=== PATIENT | male | born 1995 | race African-American/Black ===

== ENCOUNTER 2023-01-15 14:45 | Emergency (ER) | payer OTHER, SELFPAY ==
[2023-01-15 15:06] VITALS: BP 122/66; PULSE 71; RESP 16; TEMP 37; O2SAT 99
--- NOTE | 2023-01-15 16:08 | ED.NAVMDI ---
HPI - Nausea/Vomiting/Diarrhea General Chief complaint: Nausea/Vomiting/Diarrhea Stated complaint: vomiting,diarrhea Time Seen by Provider: 01/15/23 16:04 Source: patient and RN notes reviewed Mode of arrival: ambulatory Limitations: no limitations History of Present Illness HPI Narrative: Patient presents today complaining of 4 day history of vomiting and diarrhea. States he needs a note to return to work. He stopped vomiting yesterday. He had 1 episode of diarrhea this morning. No blood or mucus in his stool. He has been able to keep down [employer] food today without difficulty. Denies fever or abdominal pain. He has tried no medication for symptoms prior to arrival. Related Data Allergies Allergy/AdvReac Type Severity Reaction Status Date / Time diphenhydramine Allergy Unknown Unknown Verified 01/15/23 15:49 [From Benadryl] Penicillins Allergy Unknown Unknown Verified 01/15/23 15:49 Review of Systems Review of Systems: CONSTITUTIONAL: Denies body aches, fever, chills, or sweats. EYES: Denies visual changes, redness, or discharge. ENT: Denies rhinorrhea, congestion, sore throat, or otalgia. CARDIOVASCULAR: Denies chest pain, palpitations, or edema. RESPIRATORY: Denies cough or dyspnea. GASTROINTESTINAL: Denies abdominal pain. + nausea, vomiting, diarrhea GENITOURINARY: Denies dysuria or hematuria. SKIN: Denies rash, itching, or wounds. MUSCULOSKELETAL: Denies back pain, joint pain, or myalgia. NEUROLOGIC: Denies headache, numbness, tingling, or weakness. PSYCH: Denies depression or anxiety. PMFSH Comments At time of signature, I have reviewed and agree with nursing past medical, surgical, social and family history unless otherwise noted. Please see nursing chart for further information. There is no relevant family history pertinent to the presenting complaint Exam Narrative: GENERAL: Well-appearing, well-nourished, and in no acute distress. HEAD: Normocephalic, atraumatic. EYES: EOMI. No redness or drainage. Conjunctivae normal. ENT: Mucous membranes pink and moist. Nares clear. No rhinorrhea. Throat normal. Uvula midline. NECK: Normal AROM. CHEST: No respiratory distress. Clear to auscultation. HEART: Regular rate and rhythm. No murmur appreciated. ABDOMEN: Soft, nontender, nondistended, normal active bowel sounds. EXTREMITIES: Normal range of motion. No edema. SKIN: Warm, dry, no rash. Capillary refill normal. Normal skin turgor. NEURO: No focal deficits. Alert and oriented x3. Gait steady. PSYCH: Normal affect. No signs of depression or anxiety. Course Course Level of Care: Express Care Visit Vital Signs Vital signs: Vital Signs Temperature 98.6 F 01/15/23 15:06 Pulse Rate 71 01/15/23 15:06 Respiratory Rate 16 01/15/23 15:06 Blood Pressure 122/66 01/15/23 15:06 Pulse Oximetry 99 01/15/23 15:06 Oxygen Delivery Room Air 01/15/23 15:06 Temperature 98.6 F 01/15/23 15:06 Pulse Rate 71 01/15/23 15:06 Respiratory Rate 16 01/15/23 15:06 Blood Pressure 122/66 01/15/23 15:06 Pulse Oximetry 99 01/15/23 15:06 Oxygen Delivery Room Air 01/15/23 15:06 Reviewed MDM - Nausea/Vomiting/Diarrhea MDM Narrative Medical decision making narrative: Patient's symptoms have almost fully resolved. He is able to keep down fluids and food without difficulty. Will provide him with a return to work note. No testing or prescription medications indicated at this time. Anticipatory guidance given. Differential Diagnosis Differential diagnosis: Likely food poisoning, gastroenteritis, dehydration and other (Viral syndrome) Critical Care Time Critical Care Time Critical Care Time: No Discharge Plan Discharge Clinical Impression: Nausea vomiting and diarrhea Patient Disposition: Home, Self-Care Condition: Stable Instructions: Acute Nausea and Vomiting (DC), Acute Diarrhea (ED) Additional Instructions: Continue to stay hydrated. Follow-up with darryl
== END 2023-01-15 16:14 | disposition home or self-care (01) ==
PROVIDERS: Emergency Provider Nurse Practitioner
DX: R11.2 Nausea with vomiting, unspecified (principal); R19.7 Diarrhea, unspecified
CPT/HCPCS: 99202; G0463

== ENCOUNTER 2023-03-06 11:04 | Emergency (ER) | payer OTHER, SELFPAY ==
[2023-03-06 11:10] VITALS: BP 116/70; PULSE 106; RESP 22; TEMP 38.9; O2SAT 100
--- NOTE | 2023-03-06 11:13 | ED.NAVMDI ---
HPI - Nausea/Vomiting/Diarrhea General Chief complaint: Nausea/Vomiting/Diarrhea Stated complaint: Vomiting Blood/Fatigue/Dizziness Time Seen by Provider: 03/06/23 11:07 Source: patient Mode of arrival: ambulatory Limitations: no limitations History of Present Illness HPI Narrative: Patient is a 27-year-old male who presents with nausea, vomiting and diarrhea since yesterday evening. Worsening around 2:00 a.m. today. Per patient and patient is vomiting blood. Patient reports constant dizziness and fatigue. Patient is unable to ambulate by himself due to weakness. Denies any blood in diarrhea. Patient states he has had a fever and did take Tylenol or ibuprofen this morning before 5:00 a.m.. Does state he still has his appendix and gallbladder. Reports abdominal pain is upper epigastric and rates it an 8/10. Described as sharp. Related Data Home Medications Medication Instructions Recorded Confirmed No Home Medications 03/06/23 03/06/23 Allergies Allergy/AdvReac Type Severity Reaction Status Date / Time diphenhydramine Allergy Unknown Unknown Verified 03/06/23 11:17 [From Benadryl] Penicillins Allergy Unknown Unknown Verified 03/06/23 11:17 Review of Systems Review of Systems: All systems reviewed & are unremarkable except as noted in HPI and below Constitutional: Constitutional: Denies body ache(s), Denies chills, Reports fatigue, Reports fever(s), Denies headache(s), Denies malaise and Denies weakness Eyes: Eyes: Denies blurry vision, Denies irritation and Denies loss of vision ENT: Denies otalgia, Denies headache(s), Denies nasal discharge, Denies sinus pain and Denies sore throat Cardiovascular: Cardiovascular: Denies chest pain, Denies irregular heart rhythm and Denies dyspnea Respiratory: Respiratory: Denies dyspnea Gastrointestinal: Gastrointestinal: Reports abdominal pain, Denies melena, Denies hematochezia, Reports diarrhea, Reports nausea and Reports vomiting Musculoskeletal: Musculoskeletal: Denies back pain, Denies myalgias and Denies arthralgias Integumentary/Breasts: Skin/Breast: Denies pruritus and Denies rash Neurologic: Reports dizziness, Denies headache(s), Denies loss of vision and Denies weakness Psychiatric: Psychiatric: Reports no additional psychiatric complaints Endocrine: Endocrine: Denies fatigue PMFSH Comments At time of signature, agree with nursing past medical, surgical, social and family history. There is no relevant family history pertinent to the presenting complaint. Exam Const: General: cooperative, healthy appearing, comfortable, no acute distress and well nourished Nutritional Appearance: well nourished Orientation/consciousness: patient oriented x3 Limitations: no limitations HENMT: Head: normal to inspection, normocephalic and atraumatic Ears: hearing grossly normal bilaterally and external ears normal Face/Nose/Sinus: Normal external nose present, normal facial exam and face symmetric Face and sinus: normal facial exam and face symmetric Mouth: Yes lip normal Eyes: General: appearance normal, both eyes and all related structures Alignment and Position: alignment normal and position normal Periorbital: periorbital findings normal Eyelids: eyelids normal Pupils: Equal, round and reactive pupils present EOM: EOMs intact bilaterally Neck: Neck: normal visual inspection, full ROM and supple Chest: Chest palpation & inspection: normal inspection of the chest Resp: Effort & Inspection: normal respiratory effort and able to speak in complete sentences Auscultation: clear to auscultation bilaterally Cardio: Rate: regular rate Rhythm: regular rhythm Heart sounds: S1 normal heart sound present and S2 normal heart sound present GI: GI Palp: Yes abdominal tenderness and Yes Soft to palpation Skin: General skin exam: normal color and no rashes or lesions noted Neuro: General: patient oriented x3 and moves all extremities Cranial nerves: Yes Equal,
== END 2023-03-06 11:25 | disposition short-term general hospital (02) ==
PROVIDERS: Emergency Provider Nurse Practitioner Family
DX: K92.0 Hematemesis (principal)
CPT/HCPCS: 99215; G0463

== ENCOUNTER 2023-03-06 11:51 | Emergency (ER) | payer OTHER, SELFPAY ==
[2023-03-06] VITALS (7 sets, daily range): BP systolic 107–131; BP diastolic 63–77; PULSE 95; RESP 20; TEMP 38.6; O2SAT 98–100
--- NOTE | 2023-03-06 14:39 | ED.ABDPAIN ---
HPI - Abdominal Pain General Chief Complaint: Abdominal Pain Stated Complaint: fever/weakness/vomiting blood Time Seen by Provider: 03/06/23 14:38 History of Present Illness HPI narrative: Patient is a 27-year-old male with no past medical history here today with nausea, vomiting, weakness. Patient states that yesterday he began having some upper respiratory symptoms including a runny nose, sore throat and cough. Today it progressed to involve some abdominal pain which she notes is periumbilical, nonradiating, severe. This is been associated with nausea and multiple episodes of vomiting. He notes that he has been unable to keep any fluids down today. He does note some streaks of blood in the vomit after multiple episodes. Denies any chest pain. He had a fever at home, went into Urgent Care where he also had a fever and was referred here into the emergency department for further evaluation. He has taken nothing for his fever since 6:00 a.m. this morning. No known sick contacts. History assisted by kiki at bedside. Related Data Allergies Allergy/AdvReac Type Severity Reaction Status Date / Time diphenhydramine Allergy Unknown Unknown Verified 03/06/23 11:17 [From Benadryl] Penicillins Allergy Unknown Unknown Verified 03/06/23 11:17 Review of Systems Review of Systems: All systems reviewed & are unremarkable except as noted in HPI and below Exam Narrative: GENERAL: ill-appearing, well-nourished, and in no acute distress. HEAD: Normocephalic, atraumatic. EYES: PERRLA and EOMI. ENT: Nares clear. Mucous membranes dry. No pharyngeal edema or erythema. NECK: Supple. CHEST: Clear to auscultation. No respiratory distress. HEART: Regular rate and rhythm. Normal peripheral pulses. ABDOMEN: Soft, tender in the periumbilical region, no rebound or guarding, nondistended. EXTREMITIES: Normal range of motion. No edema. SKIN: Warm, dry, no rash. NEURO: No focal deficits. Alert and oriented x3. PSYCH: Normal mood and affect. Course Course Emergency Course: Chart review performed. Patient here with vomiting, triage vitals show fever of 101.5F. Patient seen evaluated, ill-appearing with some dry mucous membranes. Concern for possible viral process including COVID, influenza. Will swab for these. IV fluids ordered. Basic lab work has additionally been ordered. Will treat symptomatically at this time and escalate to CT abdomen pelvis should his viral swabs be negative. Lab work reviewed. No leukocytosis, CMP grossly normal. Lactic and CRP within normal limits. patient re-evaluated, feeling much better. He is COVID positive. Isolation recommended given he has to young infants at home. Will give him a work note. Will discharge on Zofran. The results of pertinent diagnostic studies and exam findings were discussed. The patient?s provisional diagnosis and plan of care were discussed with the patient and present family. The patient and/or present family expressed understanding of the diagnosis and plan. The nurse was instructed to provide written instructions and appropriate follow-up information. The patient understands their need and responsibility to obtain additional follow-up as instructed. The risks of medications administered and prescribed were discussed with the patient and family present. Vital Signs Vital signs: Vital Signs Temperature 101.5 F H 03/06/23 12:05 Pulse Rate 95 03/06/23 12:05 Respiratory Rate 20 03/06/23 12:05 Blood Pressure 107/63 03/06/23 12:05 Pulse Oximetry 100 03/06/23 12:05 Oxygen Delivery Room Air 03/06/23 12:05 Temperature 101.5 F H 03/06/23 12:05 Pulse Rate 95 03/06/23 12:05 Respiratory Rate 20 03/06/23 12:05 Blood Pressure 127/68 03/06/23 15:31 Pulse Oximetry 98 03/06/23 15:32 Oxygen Delivery Room Air 03/06/23 12:05 MDM - Abdominal Pain Lab Data 03/06/23 14:59 03/06/23 14:59 Labs: Lab Results
[2023-03-06] MEDS: SODIUM CHLORIDE 0.9% IV 2,000 ML 999 ML IV CONT (15:03)
[2023-03-06] MEDS: MORPHINE SULFATE (*CRX) 4 MG/ML INJ IV PUSH (15:04)
[2023-03-06] MEDS: ONDANSETRON INJ 4 MG/2 ML VIAL IV PUSH (15:04)
[2023-03-06 15:06] LABS: Basophils Percent Auto 0.2 % (0.2-1.2); Eosinophils Absolute Auto 0.1 K/mm3 (0-0.3); Eosinophils Percent Auto 0.6 % (0-4.4); Hematocrit 37.6 % (42.0-52.0); Hemoglobin 13.4 g/dL (14.0-18.0); Immature Granulocyte Absolute 0.02 K/mm3 (0.00-0.031); Immature Granulocyte Percent A 0.2 % (0-0.5); Lymphocytes Absolute Auto 0.43 K/mm3 (0.9-3.2); Lymphocytes Percent Auto 5.3 % (18.3-44.2); Mean Corpuscular HGB Conc 35.6 g/dl (32-36); Mean Corpuscular Hemoglobin 30.2 pg (26-34); Mean Corpuscular Volume 84.7 fl (80-100); Mean Platelet Volume 9.8 fl (7.4-10.4); Monocytes Absolute Auto 1.5 K/mm3 (0.1-0.6); Monocytes Percent Auto 18.6 % (2.6-8.5); Neutrophils Percent Auto 75.1 % (45.5-73.1); Platelet Count Result 148 k/mm3 (150-375); Red Blood Count 4.44 M/mm3 (4.6-6.20); Red Cell Distribution Width 13.1 % (11.5-14.5); White Blood Count 8.1 K/mm3 (4.5-10.0)
[2023-03-06 15:18] LABS: Lactic Acid Reflex 1.7 mmol/L (0.7-2.0)
[2023-03-06 15:19] LABS: Alanine Aminotransferase 16 U/L (6-50); Albumin Level 4.7 g/dL (3.5-5.1); Alkaline Phosphatase 61 U/L (38-126); Anion Gap 9 mmol/L (8-16); Aspartate Amino Transferase 26 U/L (17-59); Bilirubin,Total 0.9 mg/dL (0.2-1.3); Blood Urea Nitrogen 12 mg/dL (9-20); CRP 1.1 mg/dL (<1.0); Calcium 9.1 mg/dL (8.4-10.2); Carbon Dioxide 24 mmol/L (22-30); Chloride 103 mmol/L (98-107); Estimated CRCL calculation 97 ml/min; Estimated Glomerular Filt Rate > 60; Glucose 87 mg/dL (65-110); Lipase 27 U/L (23-300); Magnesium 1.6 mg/dL (1.6-2.3); Potassium 3.8 mmol/L (3.4-5.0); Sodium 136 mmol/L (137-145)
[2023-03-06 15:32] LABS: INR 1.1; Prothrombin Time 15.1 Seconds (11.1-14.7)
[2023-03-06 15:33] LABS: Partial Thromboplastin Time 36.2 SECONDS (22.3-36.8)
[2023-03-06 15:44] LABS: Influenza A QL RT-PCR Negative (Negative); Influenza B QL RT-PCR Negative (Negative); RSV RNA, RT-PCR Negative (Negative); SARS-CoV-2 RNA PCR Positive (Negative)
[2023-03-06] MEDS: LACTATED RINGERS 1,000 ML 999 ML IV CONT (16:00)
== END 2023-03-06 17:22 | disposition home or self-care (01) ==
PROVIDERS: Emergency Provider Student in an Organized Health Care Education/Training Program
DX: U07.1 COVID-19 (principal)
CPT/HCPCS: 36415; 80053; 83605; 83690; 83735; 85025; 85610; 85730; 86140; 87637; 96361; 96374; 96375; 99284; J2270; J2405; J7030; J7120

== ENCOUNTER 2023-03-08 06:02 | Emergency (ER) | payer OTHER, SELFPAY ==
[2023-03-08 06:07] VITALS: BP 122/95; PULSE 91; RESP 24; TEMP 36.6; O2SAT 100
--- NOTE | 2023-03-08 07:05 | PC.NURSE ---
Patient has been vomiting since 0200 this morning. States he has not been able to keep down any medications. Is currently in position in bed.
[2023-03-08] MEDS: ONDANSETRON INJ 4 MG/2 ML VIAL IV PUSH (07:50)
[2023-03-08] MEDS: SODIUM CHLORIDE 0.9% IV 1,000 ML 999 ML IV CONT (07:50)
[2023-03-08] MEDS: DICYCLOMINE HCL INJ 20 MG/2 ML VIAL IM (07:51)
[2023-03-08 08:05] LABS: Basophils Percent Auto 0.3 % (0.2-1.2); Eosinophils Percent Auto 0.4 % (0-4.4); Hematocrit 36.6 % (42.0-52.0); Hemoglobin 13.4 g/dL (14.0-18.0); Immature Granulocyte Absolute 0.04 K/mm3 (0.00-0.031); Immature Granulocyte Percent A 0.4 % (0-0.5); Immature Platelet Fraction Pct 3.4 % (0.9-11.2); Lymphocytes Absolute Auto 1.29 K/mm3 (0.9-3.2); Lymphocytes Percent Auto 12.2 % (18.3-44.2); Mean Corpuscular HGB Conc 36.6 g/dl (32-36); Mean Corpuscular Hemoglobin 30.4 pg (26-34); Mean Platelet Volume 10.2 fl (7.4-10.4); Monocytes Absolute Auto 1.3 K/mm3 (0.1-0.6); Monocytes Percent Auto 12.4 % (2.6-8.5); Neutrophils Absolute Auto 7.9 K/mm3 (1.3-6.7); Neutrophils Percent Auto 74.3 % (45.5-73.1); Platelet Count Result 135 k/mm3 (150-375); Red Blood Count 4.41 M/mm3 (4.6-6.20); White Blood Count 10.6 K/mm3 (4.5-10.0)
[2023-03-08 08:23] LABS: Alanine Aminotransferase 16 U/L (6-50); Albumin Level 4.1 g/dL (3.5-5.1); Alkaline Phosphatase 53 U/L (38-126); Anion Gap 10 mmol/L (8-16); Aspartate Amino Transferase 37 U/L (17-59); Bilirubin,Total 0.8 mg/dL (0.2-1.3); Blood Urea Nitrogen 13 mg/dL (9-20); Calcium 8.9 mg/dL (8.4-10.2); Carbon Dioxide 23 mmol/L (22-30); Chloride 105 mmol/L (98-107); Estimated CRCL calculation 120 ml/min; Estimated Glomerular Filt Rate > 60; Glucose 81 mg/dL (65-110); Lipase 47 U/L (23-300); Potassium 3.8 mmol/L (3.4-5.0); Sodium 138 mmol/L (137-145)
[2023-03-08 09:44] VITALS: BP 118/82; PULSE 85; RESP 18; O2SAT 100
--- NOTE | 2023-03-08 10:07 | ED.GENADULT ---
HPI - General Adult General Chief complaint: Upper Respiratory Infection Stated complaint: covid positive, vomiting Time Seen by Provider: 03/08/23 07:05 History of Present Illness HPI narrative: patient is a 27-year-old male who presents ER with nausea/ vomiting/ diarrhea. He is diagnosed with COVID-19 2 days ago. Started having diarrhea just this evening. No alleviating factors. No runny nose or sore throat or cough at this time. No syncope. Related Data Allergies Allergy/AdvReac Type Severity Reaction Status Date / Time diphenhydramine Allergy Unknown Unknown Verified 03/06/23 11:17 [From Benadryl] Penicillins Allergy Unknown Unknown Verified 03/06/23 11:17 Review of Systems Review of Systems: All systems reviewed & are unremarkable except as noted in HPI and below Constitutional: Constitutional: Denies chills, Reports fatigue and Denies fever(s) ENT: Reports system reviewed and no additional complaints, except as documented Cardiovascular: Cardiovascular: Reports no additional cardiovascular complaints Respiratory: Respiratory: Reports no additional respiratory complaints Gastrointestinal: Gastrointestinal: Reports abdominal pain, Reports diarrhea, Reports nausea and Reports vomiting PMFSH Past Medical History Medical History (Updated 03/08/23 @ 10:10 by Edmundo Dash MD) Healthy adult male Surgical History Surgical History (Updated 03/08/23 @ 10:09 by Edmundo Dash MD) No history of previous surgery Exam Narrative: GENERAL: Well-appearing, well-nourished, and in no acute distress. HEAD: Normocephalic, atraumatic. CHEST: Clear to auscultation. No respiratory distress. HEART: Regular rate and rhythm. Normal peripheral pulses. ABDOMEN: Soft, nontender, nondistended. EXTREMITIES: Normal range of motion. No edema. SKIN: Warm, dry, no rash. NEURO: Alert and oriented x3. PSYCH: Normal mood and affect. Course Course Emergency Course: patient resting comfortably. Nausea improved with Zofran. Still with occasional cramping of the abdomen. Patient felt to have gastroenteritis related to his COVID-19. Discharge with supportive care. Vital Signs Vital signs: Vital Signs Temperature 97.9 F 03/08/23 06:07 Pulse Rate 91 03/08/23 06:07 Respiratory Rate 24 H 03/08/23 06:07 Blood Pressure 122/95 H 03/08/23 06:07 Pulse Oximetry 100 03/08/23 06:07 Temperature 97.9 F 03/08/23 06:07 Pulse Rate 85 03/08/23 09:44 Respiratory Rate 18 03/08/23 09:44 Blood Pressure 118/82 03/08/23 09:44 Pulse Oximetry 100 03/08/23 09:44 Medical Decision Making Vital Signs Vital Signs: Vital Signs Temperature 97.9 F 03/08/23 06:07 Pulse Rate 91 03/08/23 06:07 Respiratory Rate 24 H 03/08/23 06:07 Blood Pressure 122/95 H 03/08/23 06:07 Pulse Oximetry 100 03/08/23 06:07 Temperature 97.9 F 03/08/23 06:07 Pulse Rate 85 03/08/23 09:44 Respiratory Rate 18 03/08/23 09:44 Blood Pressure 118/82 03/08/23 09:44 Pulse Oximetry 100 03/08/23 09:44 Lab Data 03/08/23 07:57 03/08/23 07:57 Labs: Lab Results 03/08/23 Range/Units 07:57 WBC 10.6 H (4.5-10.0) K/mm3 RBC 4.41 L (4.6-6.20) M/mm3 Hgb 13.4 L (14.0-18.0) g/dL Hct 36.6 L (42.0-52.0) % MCV 83.0 (80-100) fl MCH 30.4 (26-34) pg MCHC 36.6 H (32-36) g/dl RDW 13.0 (11.5-14.5) % Plt Count 135 L (150-375) k/mm3 MPV 10.2 (7.4-10.4) fl Immature Gran % (Auto) 0.4 (0-0.5) % Neut % (Auto) 74.3 H (45.5-73.1) % Lymph % (Auto) 12.2 L (18.3-44.2) % [place] % (Auto) 12.4 H (2.6-8.5) % Eos % (Auto) 0.4 (0-4.4) % Baso % (Auto) 0.3 (0.2-1.2) % Lymph # (Auto) 1.29 (0.9-3.2) K/mm3 [place] # (Auto) 1.3 H (0.1-0.6) K/mm3 Eos # (Auto) 0.0 (0-0.3) K/mm3 Baso # (Auto) 0.0 (0.0-0.1) K/mm3 Abs Immat Gran (auto) 0.04 H (0.00-0.031) K/mm3 Absolute Neuts (auto) 7.9 H (1.3-6.7) K/mm3 Absolute Nucleated R
[2023-03-08 10:30] VITALS: BP 124/83; PULSE 95; RESP 16; O2SAT 100
== END 2023-03-08 10:33 | disposition home or self-care (01) ==
PROVIDERS: Emergency Provider Emergency Medicine
DX: U07.1 COVID-19 (principal); K52.9 Noninfective gastroenteritis and colitis, unspecified
CPT/HCPCS: 36415; 80053; 83690; 85025; 85055; 96361; 96372; 96374; 99284; J0500; J2405; J7030